=== PATIENT | male | born 1930 | race Hispanic/Latino ===

== ENCOUNTER 2017-07-23 16:47 | Inpatient (IN) | payer MEDICARE ==
[~2017-07-23] VITALS: Ht 167.6 cm; Wt 76.1 kg
[~2017-07-23 16:47] MED LIST: ACET325C PO; ARIP2TAB3 PO; ASPI-1197 PO; ATOR20TA65 PO; CALC-724 PO; DOXA4TAB3 PO; FAMO20TA8 PO; LEVO100T12 PO; METO50TA18 PO
[2017-07-23 17:27] LABS: LYMPHOCYTES % (AUTO) 20.4 % (21.0-51.0); MEAN CORPUSCULAR HEMOGLOBIN 32.6 pg (27.0-33.0); MEAN CORPUSCULAR HGB CONC 35.4 g/dL (32.0-36.0); MEAN CORPUSCULAR VOLUME 92.1 fL (79-99); NEUTROPHILS % (AUTO) 65.6 % (40.0-77.0); PLATELET COUNT (AUTO) 252 K/uL (130-400); RED BLOOD CELL COUNT(AUTO) 2.14 MIL/uL (4.50-6.20); RED CELL DISTRIBUTION WIDTH 16.6 % (11.0-15.5); WHITE BLOOD COUNT (AUTO) 7.8 K/uL (4.8-10.8)
[2017-07-23 17:30] LABS: HEMATOCRIT 19.7 % (42-54)
[2017-07-23 17:37] LABS: POTASSIUM 4.5 mmol/L (3.5-5.1)
[2017-07-23 17:38] LABS: INR 0.96 (0.85-1.15); PARTIAL THROMBOPLASTIN TIME 23.1 SEC (26.3-35.5); PROTHROMBIN TIME 10.1 SEC (9.6-11.6)
[2017-07-23 17:42] LABS: BILIRUBIN,TOTAL 0.4 mg/dL (0.2-1.0); TOTAL PROTEIN, SERUM 5.5 g/dL (6.0-8.3)
[2017-07-23 18:31] LABS: BILIRUBIN,URINE Negative (NEGATIVE); COLOR,URINE Yellow (YELLOW); GLUCOSE, URINE (UA) Negative (NEGATIVE); KETONES,URINE Negative (NEGATIVE); LEUKOCYTE ESTERASE ,URINE Trace (NEGATIVE); NITRATE,URINE Negative (NEGATIVE); OCCULT BLOOD,URINE Negative (NEGATIVE); PH,URINE >=9.0 (5.0-8.0); PROTEIN,URINE Negative (NEGATIVE)
[2017-07-23 18:35] LABS: APPEARANCE,URINE CLEAR (CLEAR)
[2017-07-23 18:54] LABS: RBC,URINE None Seen /HPF (0-1)
[2017-07-23 18:55] LABS: BACTERIA,URINE None Seen /HPF (None Seen); SQUAMOUS EPITHELIAL CELL,UR None Seen /LPF (0-2); WBC,URINE 0-1 /HPF (0-1)
[2017-07-23] MEDS ORDERED: SODIUM CHLORIDE 0.9% 1000ML 1,000 ML IV ONE (19:11)
[2017-07-23 21:05] VITALS: BP 106/47
[2017-07-23] MEDS ORDERED: POTASSIUM CHLORIDE 20MEQ/100ML 100 ML IV PRN (22:00)
[2017-07-23] MEDS ORDERED: LIDOCAINE HCL-MPF 1% 2ML VIAL IVP PRN (22:00)
[2017-07-23] MEDS ORDERED: ONDANSETRON HCL 4 MG/2 ML VIAL IV PRN (22:00)
[2017-07-23] MEDS ORDERED: POTASSIUM CHLORIDE 10% ELIXIR 20 MEQ/15 ML UDCUP PO PRN (22:00)
[2017-07-23] MEDS ORDERED: POTASSIUM CHLORIDE 20 MEQ ERTAB PO PRN (22:00)
[2017-07-23] MEDS ORDERED: FUROSEMIDE 10 MG/ML 2ML VIAL IV SCH (22:15)
[2017-07-23 23:32] VITALS: BP 109/77
[2017-07-24] VITALS (22 sets, daily range): BP systolic 74–144; BP diastolic 29–71
[2017-07-24 05:54] LABS: HEMATOCRIT 26.9 % (42-54); MEAN CORPUSCULAR HGB CONC 35.5 g/dL (32.0-36.0); MEAN CORPUSCULAR VOLUME 90.1 fL (79-99); PLATELET COUNT (AUTO) 260 K/uL (130-400); RED BLOOD CELL COUNT(AUTO) 2.99 MIL/uL (4.50-6.20); RED CELL DISTRIBUTION WIDTH 16.2 % (11.0-15.5)
[2017-07-24 06:08] LABS: POTASSIUM 3.8 mmol/L (3.5-5.1)
[2017-07-24] MEDS ORDERED: LACTULOSE 20 GM/30 ML UDCUP PO PRN (07:30)
[2017-07-24] MEDS ORDERED: MAG HYDROX/AL HYDROX/SIMETH ES 30 ML SUSP UDCUP PO PRN (07:30)
[2017-07-24] MEDS ORDERED: POTASSIUM CHLORIDE 10% ELIXIR 20 MEQ/15 ML UDCUP PO PRN (07:30)
[2017-07-24] MEDS ORDERED: HYDRALAZINE HCL 20 MG/ML VIAL IV PRN (07:30)
[2017-07-24] MEDS ORDERED: ONDANSETRON HCL 4 MG/2 ML VIAL IV PRN (07:30)
[2017-07-24] MEDS ORDERED: ACETAMINOPHEN-CODEINE 300/30MG TAB PO PRN (07:30)
[2017-07-24] MEDS ORDERED: ACETAMINOPHEN 325 MG TAB PO PRN ×2 (07:30)
[2017-07-24] MEDS ORDERED: SODIUM CHLORIDE 0.9% 1000ML 1,000 ML IV SCH (07:30)
[2017-07-24] MEDS ORDERED: GUAIFENESIN-DM 200/20 MG 10 ML PO PRN (07:30)
[2017-07-24] MEDS ORDERED: MORPHINE SULFATE 2 MG/ML 1ML SYG IV PRN (07:30)
[2017-07-24] MEDS: INSULIN HUMULIN R 100 UNIT/ML 3ML SQ SCH ×3 (07:30→16:30)
[2017-07-24] MEDS ORDERED: NITROGLYCERIN 0.4 MG SL TAB SL PRN (07:30)
[2017-07-24] MEDS ORDERED: POLY1POW7 MC (07:52)
[2017-07-24] MEDS ORDERED: CALC-724 PO (07:54)
[2017-07-24] MEDS ORDERED: FERR220E7 PO (07:56)
[2017-07-24] MEDS ORDERED: FLUT16H NASAL (07:58)
[2017-07-24] MEDS ORDERED: AMLO1CAP6 PO (07:59)
[2017-07-24] MEDS ORDERED: MAGN400T6 PO (08:00)
[2017-07-24] MEDS ORDERED: MOM30 PO (08:01)
[2017-07-24] MEDS ORDERED: MEMA5TAB PO (08:03)
[2017-07-24] MEDS ORDERED: PANT40SU PO (08:05)
[2017-07-24] MEDS ORDERED: FLUO40CA7 PO (08:07)
[2017-07-24] MEDS ORDERED: GUAIFDM PO (08:09)
[2017-07-24] MEDS ORDERED: CHOL200016 PO (08:10)
[2017-07-24] MEDS: PANTOPRAZOLE SODIUM 40 MG TABLET.DR PO SCH ×2 (08:39→20:35)
[2017-07-24] MEDS ORDERED: FAMOTIDINE/PF 20 MG/2 ML VIAL IV SCH (09:00)
[2017-07-24] MEDS ORDERED: LACTULOSE 20 GM/30 ML UDCUP PO SCH (09:30)
[2017-07-24] MEDS ORDERED: MIDAZOLAM HCL 1 MG/ML 2ML VIAL ONE (12:35)
[2017-07-24] MEDS ORDERED: MEPERIDINE-PF 50 MG/ML SYG ONE (12:35)
[2017-07-24 14:12] LABS: HEMATOCRIT 28.2 % (42-54)
[2017-07-24] MEDS: LACTULOSE 20 GM/30 ML UDCUP PO SCH ×2 (14:53→20:35)
[2017-07-24] MEDS ORDERED: MAGNESIUM CITRATE 296 ML SOLUTION PO SCH (15:00)
[2017-07-24] MEDS ORDERED: PEG 3350/NA SULF,BICARB,CL/KCL 4000 ML SOLN PO SCH (16:00)
[2017-07-24] MEDS ORDERED: GLUCAGON 1MG KIT 1 MG ML IM PRN (21:15)
[2017-07-24] MEDS ORDERED: DEXTROSE 50%-WATER 50 ML DISP.SYRIN IV PRN (21:15)
[2017-07-24] MEDS ORDERED: DEXTROSE 5 %-0.45 % NACL 1,000 ML IV ONE (22:15)
[2017-07-25] VITALS (15 sets, daily range): BP systolic 115–150; BP diastolic 54–71
[2017-07-25] MEDS: DEXTROSE 5 %-0.45 % NACL 1,000 ML IV SCH ×2 (00:57→16:47)
[2017-07-25] MEDS: INSULIN HUMULIN R 100 UNIT/ML 3ML SQ SCH ×3 (06:00→12:00)
[2017-07-25 07:23] LABS: POTASSIUM 3.2 mmol/L (3.5-5.1)
[2017-07-25 08:01] LABS: WHITE BLOOD COUNT (AUTO) 7.5 K/uL (4.8-10.8)
[2017-07-25 08:02] LABS: HEMATOCRIT 29.3 % (42-54); MEAN CORPUSCULAR HEMOGLOBIN 31.5 pg (27.0-33.0); RED BLOOD CELL COUNT(AUTO) 3.26 MIL/uL (4.50-6.20)
[2017-07-25 08:03] LABS: NUCLEATED RED BLOOD CELLS 0.1 % (0.0-0.19); PLATELET COUNT (AUTO) 263 K/uL (130-400); RED CELL DISTRIBUTION WIDTH 16.7 % (11.0-15.5)
[2017-07-25] MEDS: MAGNESIUM OXIDE 400 MG TABLET PO SCH (09:00)
[2017-07-25] MEDS: CALCIUM 600 + VITAMIN D 400 TABLET PO SCH ×2 (09:00→22:51)
[2017-07-25] MEDS: FLUOXETINE HCL 20 MG CAPSULE PO SCH (09:00)
[2017-07-25] MEDS: AMLODIPINE-BENAZEPRIL 5-20 MG PO SCH (09:00)
[2017-07-25] MEDS: PANTOPRAZOLE SODIUM 40 MG TABLET.DR PO SCH ×2 (09:00→22:51)
[2017-07-25] MEDS: MEMANTINE HCL 5 MG TABLET PO SCH (09:00)
[2017-07-25] MEDS: POTASSIUM CHLORIDE 20MEQ/100ML 100 ML IV PRN ×2 (12:33→22:51)
[2017-07-25] MEDS: LIDOCAINE HCL-MPF 1% 2ML VIAL IVP PRN ×2 (12:33→22:51)
[2017-07-25] MEDS ORDERED: PROPOFOL 10 MG/ML 20ML VIAL IV ONE (13:56)
[2017-07-25] MEDS: FLUTICASONE PROPIONATE 50MCG/SPRAY 16 GM BOTTLE EN SCH (16:47)
[2017-07-26 00:15] VITALS: BP 155/71
[2017-07-26 03:10] VITALS: BP 136/57
[2017-07-26 03:55] LABS: HEMATOCRIT 29.4 % (42-54); MEAN CORPUSCULAR HEMOGLOBIN 31.3 pg (27.0-33.0); MEAN CORPUSCULAR HGB CONC 34.7 g/dL (32.0-36.0); PLATELET COUNT (AUTO) 271 K/uL (130-400); RED BLOOD CELL COUNT(AUTO) 3.26 MIL/uL (4.50-6.20); RED CELL DISTRIBUTION WIDTH 16.3 % (11.0-15.5); WHITE BLOOD COUNT (AUTO) 7.3 K/uL (4.8-10.8)
[2017-07-26 04:24] LABS: CREATININE 0.8 mg/dL (0.5-1.5); MAGNESIUM 1.6 mg/dL (1.80-2.40); PHOSPHORUS 3.4 mg/dL (2.5-4.9)
[2017-07-26] MEDS: INSULIN HUMULIN R 100 UNIT/ML 3ML SQ SCH ×3 (05:37→12:00)
[2017-07-26] MEDS: DEXTROSE 5 %-0.45 % NACL 1,000 ML IV SCH ×2 (06:35→23:00)
[2017-07-26 08:00] VITALS: BP 122/62
[2017-07-26] MEDS: PANTOPRAZOLE SODIUM 40 MG TABLET.DR PO SCH ×2 (09:13→23:00)
[2017-07-26] MEDS: AMLODIPINE-BENAZEPRIL 5-20 MG PO SCH (09:13)
[2017-07-26] MEDS: FLUOXETINE HCL 20 MG CAPSULE PO SCH (09:13)
[2017-07-26] MEDS: FLUTICASONE PROPIONATE 50MCG/SPRAY 16 GM BOTTLE EN SCH (09:13)
[2017-07-26] MEDS: MEMANTINE HCL 5 MG TABLET PO SCH (09:13)
[2017-07-26] MEDS: CALCIUM 600 + VITAMIN D 400 TABLET PO SCH ×2 (09:13→23:00)
[2017-07-26] MEDS: POTASSIUM CHLORIDE 20 MEQ ERTAB PO PRN ×4 (09:14→17:34)
[2017-07-26] MEDS: MAGNESIUM OXIDE 400 MG TABLET PO SCH (09:14)
[2017-07-26] MEDS: MAGNESIUM 2GM PREMIX 50ML 50 ML IV PRN (09:58)
[2017-07-26] MEDS: POTASSIUM CHLORIDE 20MEQ/100ML 100 ML IV PRN (11:09)
[2017-07-26] MEDS: LIDOCAINE HCL-MPF 1% 2ML VIAL IVP PRN (11:09)
[2017-07-26] MEDS: LACTULOSE 20 GM/30 ML UDCUP PO SCH (11:30)
[2017-07-26 11:42] VITALS: BP 152/67
[2017-07-26 16:00] VITALS: BP 125/61
[2017-07-26 20:42] VITALS: BP 125/45
[2017-07-27 01:10] VITALS: BP 132/59
[2017-07-27 04:27] LABS: CREATININE 0.8 mg/dL (0.5-1.5); MAGNESIUM 1.8 mg/dL (1.80-2.40); POTASSIUM 3.7 mmol/L (3.5-5.1)
[2017-07-27 04:46] VITALS: BP 134/51
[2017-07-27] MEDS: MAGNESIUM 2GM PREMIX 50ML 50 ML IV PRN (05:59)
[2017-07-27] MEDS: INSULIN HUMULIN R 100 UNIT/ML 3ML SQ SCH ×4 (06:00→18:00)
[2017-07-27 08:00] VITALS: BP 139/66
[2017-07-27] MEDS: FLUTICASONE PROPIONATE 50MCG/SPRAY 16 GM BOTTLE EN SCH (09:00)
[2017-07-27] MEDS ORDERED: ASPIRIN 81MG TAB.CHEW PO SCH (09:00)
[2017-07-27] MEDS: LACTULOSE 20 GM/30 ML UDCUP PO SCH (11:30)
[2017-07-27] MEDS: MAGNESIUM OXIDE 400 MG TABLET PO SCH (11:33)
[2017-07-27] MEDS: CALCIUM 600 + VITAMIN D 400 TABLET PO SCH (11:33)
[2017-07-27] MEDS: FLUOXETINE HCL 20 MG CAPSULE PO SCH (11:33)
[2017-07-27] MEDS: AMLODIPINE-BENAZEPRIL 5-20 MG PO SCH (11:33)
[2017-07-27] MEDS: PANTOPRAZOLE SODIUM 40 MG TABLET.DR PO SCH (11:33)
[2017-07-27] MEDS: MEMANTINE HCL 5 MG TABLET PO SCH (11:33)
[2017-07-27 12:00] VITALS: BP 148/67
[2017-07-27 16:00] VITALS: BP 137/66
== END 2017-07-27 19:49 | DRG 393 ==
LOC: EDH 16:47 → OBSVTOIN 18:30 → EDHIP 18:30 → 3AH 20:23
PROVIDERS: ADMIT Family Medicine; ATTEND Family Medicine
PROC: 30233N1 Transfusion of Nonautologous Red Blood Cells into Peripheral Vein, Percutaneous Approach (ICD-10-PCS; principal; 2017-07-24)
PROC: 0DB68ZZ Excision of Stomach, Via Natural or Artificial Opening Endoscopic (ICD-10-PCS; 2017-07-24)
PROC: 0DJD8ZZ Inspection of Lower Intestinal Tract, Via Natural or Artificial Opening Endoscopic (ICD-10-PCS; 2017-07-25)
DX: K31.7 Polyp of stomach and duodenum (principal); K29.01 Acute gastritis with bleeding; E11.649 Type 2 diabetes mellitus with hypoglycemia without coma; I69.351 Hemiplegia and hemiparesis following cerebral infarction affecting right dominant side; D62 Acute posthemorrhagic anemia; E44.1 Mild protein-calorie malnutrition; R13.10 Dysphagia, unspecified; Z93.1 Gastrostomy status; I10 Essential (primary) hypertension; N40.0 Benign prostatic hyperplasia without lower urinary tract symptoms; K21.0 Gastro-esophageal reflux disease with esophagitis; E03.9 Hypothyroidism, unspecified; E78.5 Hyperlipidemia, unspecified; K64.0 First degree hemorrhoids; I25.10 Atherosclerotic heart disease of native coronary artery without angina pectoris; K57.30 Diverticulosis of large intestine without perforation or abscess without bleeding; Z79.82 Long term (current) use of aspirin; Z87.442 Personal history of urinary calculi
CPT/HCPCS: 36415; 80048; 80053; 81001; 82270; 82948; 83735; 84100; 85014; 85018; 85025; 85027; 85610; 85730; 86677; 86850; 86900; 86901; 86922; 88305; 88342; 92610; 99152; 99153; J1940; J2175; J2250; J2704; J3475; J3480; J3490; J7030; J7042; P9016

== ENCOUNTER 2018-03-19 13:00 | Emergency (ER) | payer MEDICARE ==
[~2018-03-19 13:00] MED LIST changes: +AMLO1CAP6 PO; +CHOL200059 PO; +FERR220E7 PO; +FLUO40CA7 PO; +FLUT16H NASAL; +GUAIFDM PO; +MAGN400T6 PO; +MEMA5TAB PO; +MOM30 PO; +PANT40SU PO; +POLY1POW7 MC
[2018-03-19] MEDS ORDERED: ACETAMINOPHEN ELIXIR 325 MG/10.15ML UDCUP ONE (14:26)
[2018-03-19] MEDS ORDERED: TETANUS/DIPHTHERIA TOXOID [ADULT] 0.5 ML VIAL IM ONE (14:27)
[2018-03-19] MEDS ORDERED: LIDOCAINE HCL 1% 20 ML VIAL ONE (17:05)
== END 2018-03-19 18:14 | disposition home or self-care (01) ==
LOC: EDH 13:00
DX: S01.111A Laceration without foreign body of right eyelid and periocular area, initial encounter (principal); S61.411A Laceration without foreign body of right hand, initial encounter; S80.211A Abrasion, right knee, initial encounter; S50.312A Abrasion of left elbow, initial encounter; F03.90 Unspecified dementia, unspecified severity, without behavioral disturbance, psychotic disturbance, mood disturbance, and anxiety; W05.0XXA Fall from non-moving wheelchair, initial encounter; Y93.89 Activity, other specified; Y92.89 Other specified places as the place of occurrence of the external cause; Y99.8 Other external cause status
CPT/HCPCS: 12013; 70450; 73562; 90471; 90714